=== PATIENT | female | born 1960 | race African-American/Black ===

== ENCOUNTER 2020-03-08 14:32 | Emergency (ER) | payer BC, OTHER ==
[2020-03-08 14:40] VITALS: BP 126/83; PULSE 90; TEMP 97.8; BMI 27.6
== END 2020-03-08 16:47 | disposition home or self-care (01) ==
LOC: JER 14:32
DX: R05 Cough (principal); R06.9 Unspecified abnormalities of breathing; R09.81 Nasal congestion
CPT/HCPCS: 71046-TC-FY; 99284-25; C9803; U0003